=== PATIENT | male | born 1955 | race Caucasian/White ===

== ENCOUNTER 2020-11-15 16:28 | Outpatient (CLI) | payer BC, SELFPAY ==
[2020-11-15 19:21] LABS: SARS-CoV-2 Ag Positive (Negative)
== END 2020-11-15 16:29 | disposition home or self-care (01) ==
LOC: CHSLAB 02-02 12:25
PROVIDERS: PCP Internal Medicine; Visit Provider Internal Medicine
DX: U07.1 COVID-19 (principal); R05 Cough
CPT/HCPCS: 87426

== ENCOUNTER 2024-03-24 11:24 | Emergency (ER) | payer BC, MEDICAID, SELFPAY ==
[2024-03-24] VITALS (15 sets, daily range): BP systolic 141–167; BP diastolic 64–73; PULSE 80–101; RESP 16–32; TEMP 36.4; O2SAT 97–100
--- NOTE | ~2024-03-24 | XR_ITS ---
EXAMINATION: XR chest 2V Exam Date/Time: 03/24/2024 16:08 CDT HISTORY: concern for pneumonia Comparison: 09/23/2019. RESULT: Lines, tubes, and devices: None. Lungs and pleura: Clear. Cardiomediastinal silhouette: Stable. Other: No acute osseous or upper abdominal finding. IMPRESSION: No acute cardiopulmonary process. Reviewed, dictated and finalized at location K.
--- NOTE | 2024-03-24 15:39 | ED.FEVER ---
HPI - Fever General Chief Complaint: Fever Stated Complaint: fever Time Seen by Provider: 03/24/24 15:09 Source: patient and family (brother, sons) Mode of arrival: ambulatory Limitations: language barrier (Sinhala as second language but understands simple questions and brother and sons assist as needed; primary language [facility]) History of Present Illness HPI Narrative: Patient presents with an intermittent fever for the past 5 days. It has been a subjective fever, not measured. He has been having chills and sweats as well as a decreased appetite. In general he is tired and having myalgias. He states his pain is a 4 out 10 in severity. He took Tylenol yesterday morning and at 1800 yesterday. He denies any cough, congestion, nausea, vomiting. Patient cannot recall his medications. He believes he takes some for blood pressure though doesn't know if hypertension or hypotension. No changes recently. Also on diabetes medications. Related Data Allergies Allergy/AdvReac Type Severity Reaction Status Date / Time No Known Allergies Allergy Verified 03/24/24 11:24 [facility] Past Medical History Medical History Blood pressure alteration Diabetes Social History Social History (Updated 03/24/24 @ 18:54 by Luma Ya MD) Social History: Good social support Exam Narrative: GENERAL: Well-appearing, well-nourished, and in no acute distress. HEAD: Normocephalic, atraumatic. EYES: Non injected, non icteric ENT: Nares clear, no rhinorrhea or epistaxis. NECK: Supple. CHEST: Speaking in full sentences. No respiratory distress. HEART: Regular rate and rhythm. ABDOMEN: Soft, nondistended. EXTREMITIES: Normal range of motion. No edema. Legs non tender to touch. SKIN: Warm, dry, no rash. NEURO: No focal deficits. Alert and oriented x3. PSYCH: Normal mood and affect. Course Vital Signs Vital signs: Vital Signs Temperature 97.5 F L 03/24/24 11:45 Pulse Rate 88 03/24/24 11:45 Respiratory Rate 16 03/24/24 11:45 Blood Pressure 145/64 H 03/24/24 11:45 Pulse Oximetry 98 03/24/24 11:45 Oxygen Delivery Room Air 03/24/24 11:45 Temperature 97.5 F L 03/24/24 11:45 Pulse Rate 86 03/24/24 19:45 Respiratory Rate 24 H 03/24/24 19:45 Blood Pressure 156/72 H 03/24/24 19:16 Pulse Oximetry 100 03/24/24 19:30 Oxygen Delivery Room Air 03/24/24 11:45 MDM - Fever MDM Narrative Medical decision making narrative: Patient presents with a subjective fever and chills of 5 days duration , decreased appetite, myalgias, and fatigue. In the emergency department he is afebrile with acceptable vital signs. He is noted to be hyperkalemic; treatment initiated and repeat BMP pending. DIscussed with patient and his sons. Unclear etiology of hyperkalemia though it explains some of his symptoms. Presume medication side effect since normal renal function though can not definitively say given unknown what his regimen is. Nevertheless on reassessment he states he is feeling much better. Unknown source of subjective fevers. No role for antibiotics. Confirmed has a PCP for follow up. Discharged in stable condition. Differential Diagnosis Differential diagnosis: Likely cellulitis, fever of unknown origin, community acquired pneumonia, viral infection, influenza and other (UTI; medication side effect) Medical Records Medical records narrative: He is hyperkalemic. Treatment initiated. Lab Data Attestation: I reviewed the patient's lab results. Lab results narrative: Normocytic anemia, throbmocytopenia, mild leukocytosis 03/24/24 16:00 03/24/24 18:36 Labs: Lab Results 03/24/24 03/24/24 03/24/24 Range/Units 15:13 16:00 18:36 WBC 10.4 H (4.5-10.0) K/mm3 RBC 4.55 L (4.6-6.20) M/mm3 Hgb 12.8 L (14.0-18.0) g/dL Hct 38.9 L (42.0-52.0) % MCV 85.5 (80-100) fl MCH 28.1 (26-34) pg MCHC 32.
[2024-03-24 15:53] LABS: Influenza A QL RT-PCR Negative (Negative); Influenza B QL RT-PCR Negative (Negative); RSV RNA, RT-PCR Negative (Negative); SARS-CoV-2 RNA PCR Negative (Negative)
[2024-03-24 16:06] LABS: Basophils Percent Auto 0.3 % (0.2-1.2); Eosinophils Absolute Auto 0.1 K/mm3 (0-0.3); Eosinophils Percent Auto 0.8 % (0-4.4); Hematocrit 38.9 % (42.0-52.0); Hemoglobin 12.8 g/dL (14.0-18.0); Immature Granulocyte Absolute 0.07 K/mm3 (0.00-0.031); Immature Granulocyte Percent A 0.7 % (0-0.5); Immature Platelet Fraction Pct 10.8 % (0.9-11.2); Lymphocytes Absolute Auto 0.91 K/mm3 (0.9-3.2); Lymphocytes Percent Auto 8.8 % (18.3-44.2); Mean Corpuscular HGB Conc 32.9 g/dl (32-36); Mean Corpuscular Hemoglobin 28.1 pg (26-34); Mean Corpuscular Volume 85.5 fl (80-100); Mean Platelet Volume 11.4 fl (7.4-10.4); Monocytes Absolute Auto 0.9 K/mm3 (0.1-0.6); Monocytes Percent Auto 8.7 % (2.6-8.5); Neutrophils Absolute Auto 8.4 K/mm3 (1.3-6.7); Neutrophils Percent Auto 80.7 % (45.5-73.1); Platelet Count Result 113 k/mm3 (150-375); Red Blood Count 4.55 M/mm3 (4.6-6.20); Red Cell Distribution Width 14.4 % (11.5-14.5); White Blood Count 10.4 K/mm3 (4.5-10.0)
[2024-03-24 16:18] LABS: Alanine Aminotransferase 48 U/L (6-50); Albumin Level 4.3 g/dL (3.5-5.1); Alkaline Phosphatase 69 U/L (38-126); Anion Gap 11 mmol/L (4-12); Aspartate Amino Transferase 56 U/L (17-59); Bilirubin,Total 1.4 mg/dL (0.2-1.3); Blood Urea Nitrogen 25 mg/dL (9-20); Calcium 9.8 mg/dL (8.4-10.2); Carbon Dioxide 23 mmol/L (22-30); Chloride 100 mmol/L (98-107); Creatine Kinase 209 U/L (55-170); Estimated CRCL calculation 45 ml/min; Estimated Glomerular Filt Rate 55; Glucose 71 mg/dL (65-110); Magnesium 2.4 mg/dL (1.6-2.3); Potassium 5.6 mmol/L (3.4-5.0); Sodium 134 mmol/L (137-145)
--- NOTE | 2024-03-24 16:32 | ECG_ITS ---
SEE SCANNED COPY FOR CONFIRMED REPORT. MTDD
[2024-03-24] MEDS: FUROSEMIDE INJ 40 MG/4 ML VIAL IV PUSH (17:02)
[2024-03-24] MEDS: CALCIUM GLUCONATE 1,000 MG/10 ML VIAL 1000 MG IV PUSH (17:02)
[2024-03-24] MEDS: DEXTROSE 50% 25 GM/50 ML SYRINGE IV PUSH (17:02)
[2024-03-24] MEDS: SODIUM CHLORIDE 0.9% IV 1,000 ML 999 ML IV CONT (17:03)
[2024-03-24] MEDS: INSULIN HUMAN REGULAR (*BKC) 100 UNITS/ML 10 UNITS IV PUSH (17:04)
[2024-03-24 18:56] LABS: Appearance Urine Clear (Clear); Bacteria Urine None Seen /hpf; Bilirubin Urine Negative (Negative); Blood Urine Negative (Negative); Color Urine Yellow (Yellow); Glucose Urine UA 3+ mg/dL (Negative); Ketones Urine 1+ mg/dL (Negative); Leukocyte Esterase Ur Negative LEU/UL (Negative); Nitrate Urine Negative (Negative); Non Pathogenic Casts 0-2; Protein Urine Trace mg/dL (Negative); RBC Urine 0-2 /hpf (0-2); Specific Grav Ur 1.011 (1.001-1.035); Squamous Epithelial Cell Urine None Seen /hpf (Few); Urobilinogen Urine 0.2 mg/dL (<2.0); WBC Urine 0-5 /hpf (0-3); pH Urine 5.5 (5.0-9.0)
[2024-03-24 18:59] LABS: Add Urine Microscopic? YES; Anion Gap 10 mmol/L (4-12); Blood Urea Nitrogen 25 mg/dL (9-20); Calcium 9.7 mg/dL (8.4-10.2); Carbon Dioxide 23 mmol/L (22-30); Chloride 99 mmol/L (98-107); Estimated CRCL calculation 45 ml/min; Estimated Glomerular Filt Rate 55; Glucose 88 mg/dL (65-110); Sodium 132 mmol/L (137-145)
== END 2024-03-24 19:45 | disposition home or self-care (01) ==
PROVIDERS: Emergency Provider Student in an Organized Health Care Education/Training Program; PCP Family Medicine
DX: D72.829 Elevated white blood cell count, unspecified (principal); D64.9 Anemia, unspecified; D69.6 Thrombocytopenia, unspecified; E87.1 Hypo-osmolality and hyponatremia; E87.5 Hyperkalemia; R79.89 Other specified abnormal findings of blood chemistry; I44.0 Atrioventricular block, first degree; E11.9 Type 2 diabetes mellitus without complications; Z20.822 Contact with and (suspected) exposure to COVID-19
CPT/HCPCS: 36415; 71046; 80048; 80053; 81001; 82550; 83735; 85025; 85055; 87637; 93005; 96361; 96374; 96375; 99284; J0612; J1815; J1940; J7030